=== PATIENT | female | born 2000 | race American Indian/Alaskan Native ===

== ENCOUNTER 2019-05-05 12:32 | Emergency (ER) | payer SELFPAY ==
[2019-05-05 12:45] VITALS: BP 133/85
--- NOTE | 2019-05-05 12:47 | Event Note ---
ED Screening Note Date of service: 05/05/19 Time: 12:44 ED Screening Note: This is a 18 y.o. F. that presents to the ER with pelvic pain for 1 week. Reports nausea without vomiting. - urinary frequency, urgency, dysuria, vaginal discharge, and hematuria. LMP 05/05/2019 This initial assessment/diagnostic orders/clinical plan/treatment(s) is/are subject to change based on patients health status, clinical progression and re- assessment by fellow clinical providers in the ED. Further treatment and workup at subsequent clinical providers discretion. Patient/guardian urged not to elope from the ED as their condition may be serious if not clinically assessed and managed. Initial orders include: Labs
[2019-05-05 13:38] LABS: Basophils % (Auto) 0.5 % (0.0-1.8); Eosinophils # (Auto) 0.2 K/mm3 (0.0-0.4); Eosinophils % (Auto) 1.9 % (0.0-4.3); Hemoglobin 13.7 gm/dl (10.1-14.3); Lymphocytes # (Auto) 2.1 K/mm3 (1.2-5.4); Mean Corpuscular HGB Conc 33 % (30-34); Mean Corpuscular Volume 77 fl (79-97); Monocytes # (Auto) 0.8 K/mm3 (0.0-0.8); Platelet Count 370 K/mm3 (140-440); Red Blood Count 5.35 M/mm3 (3.65-5.03); Red Cell Distribution Width 15.6 % (13.2-15.2)
[2019-05-05 13:58] LABS: Alanine Aminotransferase 9 units/L (7-56); Albumin 4.8 g/dL (3.9-5); BUN/Creatinine Ratio 14; Blood Urea Nitrogen 10 mg/dL (7-17); Calcium 9.8 mg/dL (8.4-10.2); Hemolysis Index 4
[2019-05-05 14:18] LABS: Bacteria,Urine 2+ /HPF (Negative); Bilirubin,Urine NEG (Negative); Blood,Urine NEG (Negative); Color,Urine Yellow (Yellow); Mucus,Urine FEW /HPF; Protein,Urine <15 mg/dL mg/dL (Negative); Urobilinogen,Urine < 2.0 mg/dL (<2.0)
--- NOTE | 2019-05-05 15:24 | Emergency Department Report ---
ED Abdominal Pain HPI - General Chief Complaint: Abdominal Pain Stated Complaint: PELVIC/ABD PAIN Time Seen by Provider: 05/05/19 12:44 Source: patient Mode of arrival: Ambulatory Limitations: No Limitations - History of Present Illness Initial Comments: 18-year-old -Hung[place] female presents to the emergency room for complaint of abdominal pain and pelvic pain times approximately 2 weeks. Patient admits to nausea but no vomiting. Patient reports that she just started her period today and her last period prior to that was 04/03/2019. Patient denies any pain in her abdomen at this moment. Patient points to the epigastric region when the pain does come. Patient denies any belching. Patient states that it only hurts when she sits up. Patient denies any working out or doing strenuous activity. Patient reports her pelvic pain is crampy intermittent. Patient reports that usually when her periods start she will have clots patient denies any clots at this time. Patient is 1 para 0 with a miscarriage in 2016. Patient is on through 1 pad today. She does not have a primary care provider. MD Complaint: abdominal pain Onset/Timin -: week(s) Location: epigastric, suprapubic Radiation: none Severity scale (0 -10): 0 - Related Data Allergies Allergy/AdvReac Type Severity Reaction Status Date / Time No Known Allergies Allergy Verified 05/05/19 12:34 ED Review of Systems ROS: Stated complaint: PELVIC/ABD PAIN Other details as noted in HPI ED Past Medical Hx - Past Medical History Previous Medical History?: No - Surgical History Past Surgical History?: No - Social History Smoking Status: Never Smoker Substance Use Type: None ED Physical Exam - General Limitations: No Limitations General appearance: alert, in no apparent distress - Head Head exam: Present: atraumatic, normocephalic - Eye Eye exam: Present: normal appearance - ENT ENT exam: Present: mucous membranes moist - Neck Neck exam: Present: normal inspection - Respiratory Respiratory exam: Present: normal lung sounds bilaterally. Absent: respiratory distress - Cardiovascular Cardiovascular Exam: Present: regular rate, normal rhythm. Absent: systolic murmur, diastolic murmur, rubs, gallop - GI/Abdominal GI/Abdominal exam: Present: soft, normal bowel sounds. Absent: distended, tenderness - Back Exam Back exam: Present: normal inspection - Neurological Exam Neurological exam: Present: alert, oriented X3, normal gait - Psychiatric Psychiatric exam: Present: normal affect, normal mood - Skin Skin exam: Present: warm, dry, intact, normal color. Absent: rash ED Course Vital Signs 05/05/19 12:41 Temperature 99.4 F Pulse Rate 109 H Respiratory 18 Rate Blood Pressure 133/85 [Left] O2 Sat by Pulse 98 Oximetry ED Medical Decision Making - Lab Data Result diagrams: 05/05/19 13:11 05/05/19 13:11 Laboratory Results - last 72 hr 05/05/19 05/05/19 05/05/19 12:57 13:11 13:11 WBC 10.4 RBC 5.35 H Hgb 13.7 Hct 41.0 MCV 77 L MCH 26 L MCHC 33 RDW 15.6 H Plt Count 370 Lymph % (Auto) 20.0 [place] % (Auto) 8.0 H Eos % (Auto) 1.9 Baso % (Auto) 0.5 Lymph # 2.1 [place] # 0.8 Eos # 0.2 Baso # 0.0 Seg Neutrophils % 69.6 Seg Neutrophils # 7.3 Sodium 138 Potassium 3.8 Chloride 100.5 Carbon Dioxide 24 Anion Gap 17 BUN 10 Creatinine 0.7 Estimated GFR > 60 BUN/Creatinine Ratio 14 Glucose 102 H Calcium 9.8 Total Bilirubin 1.00 AST 14 ALT 9 Alkaline Phosphatase 139 H Total Protein 9.2 H Albumin 4.8 Albumin/Globulin Ratio 1.1 HCG, Qual Urine Color Yellow Urine Turbidity Clear Urine pH 7.0 Ur Specific [place] 1.018 Urine Protein <15 mg/dl Urine Glucose (UA) Neg Urine Ketones Neg Urine Blood Neg Urine Nitrite Neg Urine Bilirubin Neg Urine Urobilinogen < 2.0 Ur Leukocyte Esterase Neg Urine WBC (Auto) 3.0 Urine RBC (Auto) 5.0 U Epithel Cells (Auto) < 1.0 Urine Bacteria (Auto) 2+ Urine Mucus Few 05/05/19 13:11 WBC RBC Hgb Hct MCV MCH MCHC RDW Plt Count Lymph % (Auto) [place] % (Auto) Eos % (Auto) Baso % (Auto) Lymph # [place] # Eos # Baso # Seg Neutrophils % Seg Neutrophils # Sodium Potassium Chloride Carbon Dioxide Anion Gap BUN Creatinine Estimated GFR BUN/Creatinine Ratio Glucose Calcium Total Bilirubin AST ALT Alkaline Phosphatase Total Protein Albumin Albumin/Globulin Ratio HCG, Qual Negative Urine Color Urine Turbidity Urine pH Ur Specific [place] Urine Protein Urine Glucose (UA) Urine Ketones Urine Blood Urine Nitrite Urine Bilirubin Urine Urobilinogen Ur Leukocyte Esterase Urine WBC (Auto) Urine RBC (Auto) U Epithel Cells (Auto) Urine Bacteria (Auto) Urine Mucus - Medical Decision Making 18-year-old -Hung[place] female presents to the emergency room for complaint of abdominal pain and pelvic pain times approximately 2 weeks. Patient admits to nausea but no vomiting. Patient reports that she just started her period today and her last period prior to that was 04/03/2019. Patient denies any pain in her abdomen at this moment. Patient points to the epigastric region when the pain does come. Patient denies any belching. Patient states that it only hurts when she sits up. Patient denies any working out or doing strenuous activity. Patient reports her pelvic pain is crampy intermittent. Patient reports that usually when her periods start she will have clots patient denies any clots at this time. Patient is 1 para 0 with a miscarriage in 2016. Patient is on through 1 pad today. She does not have a primary care provider. Labs are negative for any concerns. Urinalysis is negative. Discussed the patient she can take ibuprofen for menstrual cramps. Patient currently has no abdominal pain. Patient is to follow-up with the community clinic or [facility]. Critical care attestation.: If time is entered above; I have spent that time in minutes in the direct care of this critically ill patient, excluding procedure time. ED Disposition Clinical Impression: Menstrual cramps, Pre-menstrual syndrome Abdominal pain Qualifiers: Abdominal location: epigastric Qualified Code(s): R10.13 - Epigastric pain Disposition: TO HOME OR SELFCARE Is pt being admited?: No Does the pt Need Aspirin: No Condition: Stable Instructions: Menstruation (ED), Premenstrual Syndrome (ED), Abdominal Pain (ED) Additional Instructions: Tylenol or ibuprofen for menstrual cramps. Follow-up with the primary care provider G provider if symptoms persist or gets worse. Referrals: PRIMARY CARE, [Primary Care Provider] - 3-5 Days [facility] [Provider Group] - 3-5 Days Forms: Work/School Release Form(ED)
== END 2019-05-05 15:46 | disposition home or self-care (01) ==
LOC: ED 12:32
DX: N94.6 Dysmenorrhea, unspecified (principal)
CPT/HCPCS: 36415; 80053; 81001; 84703; 85025; 87076; 87086; 87186; 99283